=== PATIENT | male | born 1950 ===

== ENCOUNTER → 2017-06-15 | Outpatient (CLI) | payer OTHER | END | disposition home or self-care (01) | LOC: C.PATHSPEC 08:37 | PROVIDERS: ATTEND Orthopaedic Surgery | DX: L03.011 Cellulitis of right finger (principal) ==

== ENCOUNTER → 2017-06-15 | Outpatient (CLI) | payer OTHER | END | disposition home or self-care (01) | LOC: C.LABSPEC 17:35 | PROVIDERS: ATTEND Orthopaedic Surgery | DX: L08.9 Local infection of the skin and subcutaneous tissue, unspecified (principal); L03.011 Cellulitis of right finger ==